=== PATIENT | female | born 1980 | race Caucasian/White ===

== ENCOUNTER → 2016-09-05 | Outpatient (CLI) | payer OTHER ==
[~2016-09-05] MED LIST: METH500T PO; OXYC1TAB63 PO
== END ==
LOC: HPND 07:59
PROVIDERS: ATTEND Obstetrics & Gynecology
DX: O09.522 Supervision of elderly multigravida, second trimester (principal); O09.812 Supervision of pregnancy resulting from assisted reproductive technology, second trimester; O44.02 Complete placenta previa NOS or without hemorrhage, second trimester
CPT/HCPCS: 76816; 76817; 76825; 76827; 93325

== ENCOUNTER → 2016-10-04 | Outpatient (CLI) | payer OTHER | LOC: HPND 08:08 | PROVIDERS: ATTEND Obstetrics & Gynecology | DX: O44.03 Complete placenta previa NOS or without hemorrhage, third trimester (principal); O09.523 Supervision of elderly multigravida, third trimester; O04.8 (Induced) termination of pregnancy with other and unspecified complications; Z3A.28 28 weeks gestation of pregnancy | CPT/HCPCS: 76816; 76817 ==

== ENCOUNTER → 2016-10-30 | Outpatient (CLI) | payer OTHER | LOC: HPND 09:53 | PROVIDERS: ATTEND Obstetrics & Gynecology | DX: O09.522 Supervision of elderly multigravida, second trimester (principal); O44.40 Low lying placenta NOS or without hemorrhage, unspecified trimester; O09.812 Supervision of pregnancy resulting from assisted reproductive technology, second trimester | CPT/HCPCS: 76816; 76817 ==

== ENCOUNTER 2016-11-20 21:07 | Inpatient (IN) | payer OTHER ==
[~2016-11-20] VITALS: Ht 175.3 cm; Wt 113.4 kg
--- NOTE | 2016-11-20 22:07 | PD ---
HPI Chief Complaint LOF Date Seen: Nov 20, 2016 Travel History International Travel<30 Days: No Contact w/Intl Traveler<30Days: No Known Affected Area: No History of Present Illness HPI at 35w 4d, SHAY 12-21-16, presents with c/o LOF. Reports clear fluid 1-2 hours prior to arrival. Denies contractions/VB. Reports good FM. Patient with history of HTN- currently taking Aldomet 500mg bid. Did not take pm dose. Denies SHEIKH/visual changes/RUQ pain. Para: 0 : 2 History Past Medical History Narrative Medical CHTN- currently taking Aldomet 500mg bid Medical History: Denies Significant Hx Obstetric History Obstetric History SAB, first trimester Past Surgical History Surgical History: No Previous Surgery Family History Family History: Negative Social History Alcohol Use: No Tobacco Use: No Substance Abuse: No Physical Exam AFVSS BP 148/88, 146/69 Narrative GENERAL: Well-nourished, well-developed patient. SKIN: Warm and dry. HEAD: Normocephalic and atraumatic. EYES: No scleral icterus. No injection or drainage. ENT: No nasal drainage noted. Mucous membranes pink. Airway patent. NECK: Supple, trachea midline. No JVD. CARDIOVASCULAR: Regular rate and rhythm without murmurs, gallops, or rubs. RESPIRATORY: Breath sounds equal bilaterally. No accessory muscle use. BREASTS: Bilateral exam showed no masses , no retractions, no nipple discharge. ABDOMEN/GI: Abdomen soft, non-tender, bowel sounds present, no rebound, no guarding Gravid to [-] weeks size Fundal Height: [-] GENITOURINARY: External Genitalia: intact and normal in appearance BUS glands: [-] Cervix: [-] Dilatation: [0] Effacement: [0] Station: [3] Presentation: [-] Membranes: [intact or ruptured] Uterine Contractions: [-] FHT's: Category: [1] Baseline: [130s] Reactive: [reactive] Variability: [moderate] Decels: [none] EXTREMITIES: No cyanosis or edema. BACK: Nontender without obvious deformity. No CVA tenderness. NEUROLOGICAL: Awake and alert. Motor and sensory grossly within normal limits. Five out of 5 muscle strength in all muscle groups. Normal speech. Data Data Labs AmniSure- negative AmniSure- positive Limited bedside US- JM 12cm, vertex. MDM Interpretation(s) at 35w 4d, CHTN, no leakage of fluid. Plan Will have patient take pm dose of Aldomet. Will monitor and recheck BP. Patient now with a negative and positive AmniSure. JM 12cm. Will admit for observation and have US done in the am. All questions answered. D/w Dr. Celestin. Diagnosis Diagnosis: Primary Impression: 35 weeks gestation of Additional Impressions: Hypertension affecting in third trimester Vaginal discharge during in third trimester Tiffanie Nguyen MD Nov 20, 2016 22:07
[2016-11-21] VITALS (85 sets, daily range): BP systolic 121–152; BP diastolic 60–88; PULSE 61–106; RESP 16–20; TEMP 97.8–98
[2016-11-21] MEDS ORDERED: METH500T PO (00:11)
--- NOTE | 2016-11-21 07:50 | HHI.HP ---
HPI Chief Complaint leaking fluid Date Seen: Nov 21, 2016 Time Seen: 07:45 Travel History International Travel<30 Days: No Contact w/Intl Traveler<30Days: No Known Affected Area: No History of Present Illness HPI Patient reports wet feeling all day at work. When she came home it was continuing she came for evaluation. Other diagnosis include low lying placenta and IVF, Hypertension on Methyldopa 500mg BID Para: 0 : 2 History Past Medical History Medical History: Denies Significant Hx Obstetric History Obstetric History one miscarriage Past Surgical History Narrative Surgical none Family History Family History: Negative Social History Alcohol Use: No Tobacco Use: No Substance Abuse: No Allergies-Medications (Allergen,Severity, Reaction): Coded Allergies: No Known Allergies (Unverified , 11/21/16) Home Meds Reported Medications Methyldopa 500 Mg [id number] Mg PO BID Ref 0 11/21/16 Review of Systems Except as stated in HPI: all other systems reviewed are Neg Physical Exam Vital Signs Date Time Temp Pulse Resp B/P Pulse Ox O2 Delivery O2 Flow Rate FiO2 11/21/16 07:12 71 121/67 11/21/16 07:10 74 11/21/16 07:00 17 11/21/16 07:00 89 11/21/16 02:28 97.9 18 11/21/16 02:27 74 128/77 11/21/16 00:27 98.0 18 11/21/16 00:17 83 144/84 Narrative GENERAL: Well-nourished, well-developed patient. SKIN: Warm and dry. HEAD: Normocephalic and atraumatic. EYES: No scleral icterus. No injection or drainage. ENT: No nasal drainage noted. Mucous membranes pink. Airway patent. NECK: Supple, trachea midline. No JVD. CARDIOVASCULAR: Regular rate and rhythm without murmurs, gallops, or rubs. RESPIRATORY: Breath sounds equal bilaterally. No accessory muscle use. BREASTS: Bilateral exam showed no masses , no retractions, no nipple discharge. ABDOMEN/GI: Abdomen soft, non-tender, bowel sounds present, no rebound, no guarding Gravid to 35 weeks size Fundal Height: [-] GENITOURINARY: External Genitalia: intact and normal in appearance BUS glands: [-] Cervix: closed Effacement: [-] Station: [-] Presentation: [-] Membranes:? Uterine Contractions: [-] FHT's: Category:1 Baseline: [-] Reactive: [-] Variability: [-] Decels: [-] EXTREMITIES: No cyanosis or edema. BACK: Nontender without obvious deformity. No CVA tenderness. NEUROLOGICAL: Awake and alert. Motor and sensory grossly within normal limits. Five out of 5 muscle strength in all muscle groups. Normal speech. Data Data Vital Signs Reviewed: Yes Orders Ob (2e) Additional Admit Info (11/20/16 23:57) Place In Observation (11/20/16 ) Vital Signs (Adult) BEAR.U0Y-JOKDS AWAKE (11/20/16 23:59) Heart BEAR.QSHIFT (11/20/16 23:59) Activity Bed Rest With Brp (11/20/16 23:59) Complete Blood Count With Diff (11/20/16 23:59) Sodium Chloride 0.9% Flush (Ns Flush) (11/21/16 00:00) Diet Regular Basic (11/21/16 Breakfast) Type And Screen (11/20/16 23:59) Assessment/Plan Problem List: (1) Hypertension affecting in third trimester (2) Vaginal discharge during in third trimester (3) 35 weeks gestation of Assessment and Plan Have us today check fluid Aki Celestin MD Nov 21, 2016 07:50
[2016-11-21 07:51] LABS: BASOPHIL % 0.3 % (0.0-2.0); EOSINOPHIL # 0.1 TH/MM3 (0-0.4); EOSINOPHIL % 0.7 % (0.0-4.0); HEMATOCRIT 33.7 % (35.0-46.0); HEMO FLAGS DIFF FINAL; LYMPHOCYTE # 3.4 TH/MM3 (1.0-4.8); MEAN CELL VOLUME 89.7 FL (80.0-100.0); MEAN CORPUSCULAR HEMOGLOBIN 31.8 PG (27.0-34.0); MEAN CORPUSCULAR HGB CONC 35.4 % (32.0-36.0); MONO % 6.6 % (0.0-8.0); NEUT % 70.4 % (16.0-70.0); PLATELET COUNT 220 TH/MM3 (150-450); RED BLOOD COUNT 3.76 MIL/MM3 (4.00-5.30); RED CELL DISTRIBUTION WIDTH 12.7 % (11.6-17.2); WHITE BLOOD COUNT 15.6 TH/MM3 (4.0-11.0)
[2016-11-21] MEDS ORDERED: MISOPROSTOL 25 MCG SUPP VAGINAL ONE (13:15)
[2016-11-21] MEDS ORDERED: PENICILLIN G POT 5,000,000 UNITS/NS 100 ML(Mini-Bag Plus) IV ONE ×2 (13:15)
[2016-11-21] MEDS ORDERED: OXYTOCIN 30 UNITS 500ML PREMIX IV ONE (13:30)
[2016-11-21] MEDS ORDERED: MINERAL OIL 10 ML VIAL TOPICAL PRN (13:30)
[2016-11-21] MEDS ORDERED: LIDOCAINE HCL 1% 50 ML VIAL INFIL PRN (13:30)
[2016-11-21] MEDS ORDERED: LACTATED RINGER'S 1000 ML BOLUS IV PRN (13:45)
[2016-11-21] MEDS ORDERED: NS 1000 ML IV PRN (13:45)
[2016-11-21] MEDS ORDERED: NS 500 ML BOLUS IV PRN (13:45)
[2016-11-21] MEDS ORDERED: LIDOCAINE HCL 1% 50 ML VIAL I-DERMAL PRN (13:45)
[2016-11-21] MEDS ORDERED: CITRIC ACID-SODIUM CITRATE LIQ 30 ML UDC PO SCH (13:45)
[2016-11-21 13:53] LABS: AUTOMATED NEUTROPHIL # 9.9 TH/MM3 (1.8-7.7); BASOPHIL % 0.3 % (0.0-2.0); EOSINOPHIL % 0.2 % (0.0-4.0); HEMATOCRIT 31.8 % (35.0-46.0); HEMO FLAGS DIFF FINAL; LYMPH % 18.1 % (9.0-44.0); LYMPHOCYTE # 2.4 TH/MM3 (1.0-4.8); MEAN CELL VOLUME 89.5 FL (80.0-100.0); MEAN CORPUSCULAR HEMOGLOBIN 31.5 PG (27.0-34.0); MEAN CORPUSCULAR HGB CONC 35.2 % (32.0-36.0); MONO % 5.4 % (0.0-8.0); PLATELET COUNT 196 TH/MM3 (150-450); RED BLOOD COUNT 3.55 MIL/MM3 (4.00-5.30); RED CELL DISTRIBUTION WIDTH 12.5 % (11.6-17.2)
[2016-11-21] MEDS: BETAMETHASONE SOD PHOS/ACETATE SUSP 30 MG/5 ML VIAL IM SCH (14:52)
[2016-11-21] MEDS: LACTATED RINGER'S 1000 ML IV SCH ×2 (14:53→22:29)
[2016-11-21 14:54] LABS: BACTERIA, URINE RARE /hpf; BLOOD, URINE NEG (NEG); COMMENT (UR) CULT NOT INDICATED; CULTURE IF INDICATED CULT NOT INDICATED; GLUCOSE,URINE NEG (NEG); KETONE, URINE NEG (NEG); NITRITE,URINE NEG (NEG); PH, URINE 6.5 (5.0-8.5); SQUAMOUS EPITHELIAL CELL URINE 4 /hpf (0-5); URINE COLOR YELLOW (YELLW/STRAW)
[2016-11-21] MEDS ORDERED: PENICILLIN G POT 2,500,000 UNITS/NS 100 ML IV SCH ×2 (17:00)
--- NOTE | 2016-11-21 17:37 | PD.LABORPN ---
Subjective Subjective doing well, PPROM on cytotec and steroids and GBS prophylaxis Objective Vital Signs Vital Signs Date Time Temp Pulse Resp B/P Pulse Ox O2 Delivery O2 Flow Rate FiO2 11/21/16 15:15 18 11/21/16 15:15 98.0 141/76 11/21/16 11:15 97.8 76 17 11/21/16 11:14 75 127/77 11/21/16 11:10 77 11/21/16 11:05 70 11/21/16 11:00 75 Objective Pelvic Exam: Cervix: [-] Dilatation: closed Effacement: 20 Station: [-] Presentation: [-] Membranes: ruptured Uterine Contractions: [-] FHT's: Category: 1 Baseline: [-] Reactive: [-] Variability: [-] Decels: [-] Assessment/Plan Problem List: (1) Hypertension affecting in third trimester (2) Vaginal discharge during in third trimester (3) 35 weeks gestation of (4) premature rupture of membranes (PPROM) with onset of labor after 24 hours of rupture in third trimester, antepartum Aki Celestin MD Nov 21, 2016 17:37
[2016-11-21] MEDS ORDERED: SODIUM CHLORIDE 0.9% FLUSH 10 ML FLUSH IV FLUSH PRN ×2 (17:45)
[2016-11-21] MEDS: PENICILLIN G POT 2,500,000 UNITS/NS 100 ML IV SCH ×4 (19:41→23:38)
[2016-11-21] MEDS: MISOPROSTOL 25 MCG SUPP VAGINAL PRN ×2 (19:45→23:38)
[2016-11-21] MEDS: SODIUM CHLORIDE 0.9% FLUSH 10 ML FLUSH IV FLUSH SCH (19:46)
[2016-11-21] MEDS: METHYLDOPA 500 MG TAB PO SCH (20:59)
[2016-11-22] VITALS (265 sets, daily range): BP systolic 120–156; BP diastolic 59–94; PULSE 43–117; RESP 16–18; TEMP 97.5–98.4
[2016-11-22 00:09] LABS: BARBITURATES, URINE NEG (NEG); COCAINE, URINE NEG (NEG)
[2016-11-22 00:29] LABS: AMPHETAMINE, URINE POS (NEG)
[2016-11-22] MEDS: PENICILLIN G POT 2,500,000 UNITS/NS 100 ML IV SCH ×10 (03:16→18:53)
[2016-11-22] MEDS: MISOPROSTOL 25 MCG SUPP VAGINAL PRN (03:24)
[2016-11-22] MEDS: LACTATED RINGER'S 1000 ML IV SCH ×3 (05:45→21:45)
[2016-11-22] MEDS ORDERED: MISOPROSTOL 100 MCG TAB ONE (07:47)
[2016-11-22] MEDS ORDERED: MISOPROSTOL 100 MCG TAB VAGINAL ONE ×2 (08:00→14:15)
--- NOTE | 2016-11-22 08:04 | PD.LABORPN ---
Subjective Subjective SROM Objective Vital Signs Vital Signs Date Time Temp Pulse Resp B/P Pulse Ox O2 Delivery O2 Flow Rate FiO2 11/22/16 07:21 97.5 16 11/22/16 07:20 87 11/22/16 07:15 78 11/22/16 07:10 76 11/22/16 07:05 80 11/22/16 07:00 88 134/74 11/22/16 07:00 71 11/22/16 06:55 83 11/22/16 06:50 76 11/22/16 06:40 73 11/22/16 06:35 89 11/22/16 06:30 73 11/22/16 06:25 74 11/22/16 06:20 73 11/22/16 06:15 73 11/22/16 06:10 73 11/22/16 06:05 73 11/22/16 06:00 79 11/22/16 06:00 86 130/79 11/22/16 05:55 97 11/22/16 05:50 84 11/22/16 05:45 87 11/22/16 05:40 85 11/22/16 05:35 91 11/22/16 05:30 97.7 11/22/16 05:30 93 11/22/16 05:30 18 11/22/16 05:25 79 11/22/16 05:20 75 11/22/16 05:15 76 11/22/16 05:10 89 11/22/16 05:00 78 128/87 11/22/16 05:00 89 11/22/16 04:55 75 11/22/16 04:50 73 11/22/16 04:45 75 11/22/16 04:40 78 11/22/16 04:35 73 11/22/16 04:30 74 11/22/16 04:25 75 11/22/16 04:20 72 11/22/16 04:15 70 11/22/16 04:10 71 11/22/16 04:05 87 11/22/16 04:00 75 11/22/16 04:00 87 120/94 11/22/16 03:55 73 11/22/16 03:50 72 11/22/16 03:45 75 11/22/16 03:40 83 11/22/16 03:35 74 11/22/16 03:30 76 11/22/16 03:25 76 11/22/16 03:20 78 11/22/16 03:18 97.8 16 11/22/16 03:15 81 11/22/16 03:10 88 11/22/16 03:00 77 11/22/16 03:00 78 126/80 11/22/16 02:55 86 11/22/16 02:50 76 11/22/16 02:45 72 11/22/16 02:40 73 11/22/16 02:35 74 11/22/16 02:30 78 11/22/16 02:25 75 11/22/16 02:20 71 11/22/16 02:15 92 11/22/16 02:10 77 16 11/22/16 02:05 74 11/22/16 02:00 68 11/22/16 02:00 72 125/77 11/22/16 01:55 74 11/22/16 01:50 81 11/22/16 01:40 83 11/22/16 01:35 82 11/22/16 01:30 88 11/22/16 01:25 87 11/22/16 01:20 87 11/22/16 01:15 89 11/22/16 01:10 82 11/22/16 01:05 81 11/22/16 01:04 97.9 18 11/22/16 01:00 76 120/70 11/22/16 01:00 85 11/22/16 00:55 76 11/22/16 00:50 74 11/22/16 00:45 75 11/22/16 00:40 75 11/22/16 00:35 74 11/22/16 00:30 76 11/22/16 00:25 77 11/22/16 00:20 86 11/22/16 00:15 78 11/22/16 00:10 75 11/22/16 00:05 80 Objective Pelvic Exam: Cervix: [-] Dilatation: closed Effacement: 50 Station: [-] Presentation: [-] Membranes: ruptured] Uterine Contractions: infrequent FHT's: Category: 1 Baseline: [-] Reactive: [-] Variability: [-] Decels: [-] Assessment/Plan Problem List: (1) Hypertension affecting in third trimester (2) Vaginal discharge during in third trimester (3) 35 weeks gestation of (4) premature rupture of membranes (PPROM) with onset of labor after 24 hours of rupture in third trimester, antepartum Assessment and Plan 4 doses cytotec supp 25 mcg now increase to 50 mcg tablet Aki Celestin MD Nov 22, 2016 08:04
[2016-11-22] MEDS ORDERED: PILL SPLITTER OTHER PRN (08:15)
[2016-11-22] MEDS: METHYLDOPA 500 MG TAB PO SCH ×2 (08:49→21:05)
[2016-11-22] MEDS: SODIUM CHLORIDE 0.9% FLUSH 10 ML FLUSH IV FLUSH SCH ×2 (09:00→21:00)
[2016-11-22] MEDS: BETAMETHASONE SOD PHOS/ACETATE SUSP 30 MG/5 ML VIAL IM SCH (14:31)
[2016-11-22] MEDS ORDERED: OXYTOCIN 30 UNITS-500ML PREMIX 500 ML ONE (18:03)
[2016-11-22] MEDS ORDERED: OXYTOCIN 30 UNITS/NS 500ML PREMIX IV SCH (18:30)
[2016-11-23] VITALS (41 sets, daily range): BP systolic 101–149; BP diastolic 61–83; PULSE 67–106; RESP 16–18; TEMP 97.1–98.4; O2SAT 96–97
--- NOTE | 2016-11-23 00:04 | PD.LABORPN ---
Subjective Subjective doing well Objective Vital Signs Vital Signs Date Time Temp Pulse Resp B/P Pulse Ox O2 Delivery O2 Flow Rate FiO2 11/22/16 23:30 69 11/22/16 23:25 73 11/22/16 23:15 94 11/22/16 23:10 96 11/22/16 23:05 101 11/22/16 23:00 98 156/84 11/22/16 23:00 93 11/22/16 22:55 97 11/22/16 22:50 94 11/22/16 22:45 96 11/22/16 22:40 117 11/22/16 22:35 95 11/22/16 22:30 94 11/22/16 22:20 84 11/22/16 22:15 81 11/22/16 22:10 87 11/22/16 22:05 77 11/22/16 22:01 88 129/59 11/22/16 22:00 77 11/22/16 21:55 82 11/22/16 21:50 89 11/22/16 21:45 99 11/22/16 21:40 91 11/22/16 21:35 98.0 11/22/16 21:30 81 11/22/16 21:25 83 11/22/16 21:20 82 11/22/16 21:15 81 11/22/16 21:10 76 11/22/16 21:05 79 11/22/16 21:00 86 11/22/16 20:55 74 11/22/16 20:52 81 150/92 11/22/16 20:50 85 11/22/16 20:45 88 11/22/16 20:40 69 11/22/16 20:35 76 11/22/16 20:30 75 11/22/16 20:25 73 11/22/16 20:20 92 11/22/16 20:10 91 11/22/16 20:05 93 11/22/16 20:00 94 11/22/16 19:50 89 11/22/16 19:45 90 11/22/16 19:40 85 11/22/16 19:35 93 11/22/16 19:30 95 11/22/16 19:25 89 11/22/16 19:20 78 11/22/16 19:15 78 11/22/16 19:10 82 11/22/16 19:05 91 11/22/16 19:00 83 11/22/16 18:58 88 16 143/93 11/22/16 18:55 50 11/22/16 18:50 43 11/22/16 18:45 49 11/22/16 18:40 83 11/22/16 18:30 83 11/22/16 17:53 97.7 137/83 11/22/16 17:52 16 11/22/16 17:50 74 11/22/16 17:00 18 140/81 11/22/16 16:55 83 11/22/16 16:50 74 11/22/16 16:45 79 11/22/16 16:40 85 11/22/16 16:35 77 11/22/16 16:30 18 11/22/16 16:30 85 11/22/16 16:25 77 11/22/16 16:20 81 11/22/16 16:15 78 11/22/16 16:10 83 11/22/16 16:05 87 11/22/16 16:00 81 11/22/16 15:59 16 11/22/16 15:59 98.4 11/22/16 15:59 75 128/66 11/22/16 15:55 85 Objective Pelvic Exam: Cervix: [-] Dilatation: closed Effacement: 50 Station: [-] Presentation: v Membranes: [intact Uterine Contractions: [-] FHT's: Category: 1 Baseline: [-] Reactive: [-] Variability: [-] Decels: [-] Assessment/Plan Problem List: (1) Hypertension affecting in third trimester (2) Vaginal discharge during in third trimester (3) 35 weeks gestation of (4) premature rupture of membranes (PPROM) with onset of labor after 24 hours of rupture in third trimester, antepartum Assessment and Plan pitocin if no contractions will perform CS after 48 hours of srom Aki Celestin MD Nov 23, 2016 00:04
[2016-11-23] MEDS: PENICILLIN G POT 2,500,000 UNITS/NS 100 ML IV SCH ×2 (00:19)
[2016-11-23] MEDS ORDERED: OXYTOCIN 10 UNIT/ML AMP ONE (03:01)
[2016-11-23] MEDS ORDERED: CITRIC ACID-SODIUM CITRATE LIQ 30 ML UDC PO SCH (03:15)
[2016-11-23] MEDS ORDERED: ceFAZolin 2 GM PREMIX 50 ML IV SCH (03:15)
[2016-11-23] MEDS ORDERED: LACTATED RINGER'S 1000 ML IV SCH (03:15)
[2016-11-23] MEDS ORDERED: LACTATED RINGER'S 1000 ML IV ONE (03:15)
[2016-11-23] MEDS ORDERED: EPIDURAL-DIPHENHYDRAMINE HCL 50 MG/ML VIAL IV PUSH PRN (03:30)
[2016-11-23] MEDS ORDERED: EPIDURAL-NALOXONE HCL 0.4 MG/ML AMP IV PRN (03:30)
[2016-11-23] MEDS ORDERED: EPIDURAL-NO SYSTEMIC NARCOTICS PRN (03:30)
[2016-11-23] MEDS ORDERED: EPIDURAL-DIPHENHYDRAMINE HCL 50 MG CAP PO PRN (03:30)
[2016-11-23] MEDS ORDERED: EPIDURAL-DO NOT ADMINISTER ANTICOAGULANTS PRN (03:30)
[2016-11-23] MEDS ORDERED: ONDANSETRON HCL 4 MG/2 ML VIAL ONE (04:11)
[2016-11-23] MEDS ORDERED: MORPHINE SULFATE PF 5 MG/10 ML VIAL ONE (04:11)
[2016-11-23] MEDS ORDERED: OXYTOCIN 30 UNITS-500ML PREMIX 500 ML IV ONE (04:15)
[2016-11-23] MEDS ORDERED: oxyCODONE/ACETAMINOPHEN 5 MG/325 MG TAB PO PRN ×2 (04:15)
[2016-11-23] MEDS ORDERED: KETOROLAC TROMETHAMINE 60 MG/2 ML (IM) VIAL IM PRN (04:15)
[2016-11-23] MEDS ORDERED: SODIUM CHLORIDE 0.9% FLUSH 10 ML FLUSH IV FLUSH PRN (04:15)
[2016-11-23] MEDS ORDERED: SIMETHICONE 80 MG CHEWABLE TAB PO PRN (04:15)
--- NOTE | 2016-11-23 04:16 | PD.OB.DELI ---
Procedure Note Section Procedure Pre Op Diagnosis: (1) 35 weeks gestation of (2) premature rupture of membranes (PPROM) with onset of labor after 24 hours of rupture in third trimester, antepartum Post Op Diagnosis: (1) 35 weeks gestation of (2) premature rupture of membranes (PPROM) with onset of labor after 24 hours of rupture in third trimester, antepartum (3) Arrest of dilation, delivered, current hospitalization Performed by Aki Celestin Procedure: Primary Low Transverse Sec Indication for delivery: Other (arrest of dilatation) Informed consent obtained: For anesthesia, For procedure Confirmed correct: Patient, Procedure, Time-out taken Anesthesia: Spinal Medication prior to procedure: Antibiotics, IV Monitoring during procedure: Blood pressure monitoring Urinary catheter: Inserted using sterile technique, To dependent drainage Sterile preparation: Duraprep Position: Supine with wedge to left side Operative Features Skin Incision: Pfannenstiel Uterine Incision: Low transverse w/knife / blunt ext Membranes Ruptured: Previously Presentation: Occiput anterior Delivery of : Assisted (vacuum to elevate) : Male, Single One Minute : 7 Five Minute : 8 Weight: 6# 2 oz Status of : Viable Placenta delivered: Intact Medications: Antibiotics Estimated blood loss: 400 Procedure tolerated: Well Maternal Condition: Stable Condition: Stable Aki Celestin MD Nov 23, 2016 04:16
[2016-11-23] MEDS ORDERED: SODIUM CHLORIDE 0.9% FLUSH 5 ML FLUSH ONE (04:24)
[2016-11-23] MEDS ORDERED: LACTATED RINGER'S 1,000 ML BAG IV ONE (04:31)
--- NOTE | 2016-11-23 07:33 | HHI.OB ---
Subjective Post Day: 1 Remarks had CS this AM doing well Objective Vitals/I&O Vital Signs Date Time Temp Pulse Resp B/P Pulse Ox O2 Delivery O2 Flow Rate FiO2 11/23/16 05:15 79 18 123/69 96 11/23/16 05:00 81 18 96 11/23/16 04:50 116/62 11/23/16 04:44 79 18 124/64 96 11/23/16 04:15 97.8 100 18 101/66 97 11/23/16 03:10 106 11/23/16 03:05 90 11/23/16 03:00 87 125/71 11/23/16 03:00 84 11/23/16 02:48 98.0 11/23/16 02:45 90 11/23/16 02:35 96 11/23/16 02:30 83 11/23/16 02:25 92 11/23/16 02:20 92 11/23/16 02:15 85 11/23/16 02:10 93 11/23/16 02:05 94 11/23/16 02:00 80 143/83 11/23/16 02:00 78 11/23/16 01:55 88 11/23/16 01:50 74 11/23/16 01:45 86 11/23/16 01:40 87 11/23/16 01:35 89 11/23/16 01:10 84 11/23/16 01:00 81 127/65 11/23/16 00:50 88 11/23/16 00:45 86 11/23/16 00:40 85 11/23/16 00:35 75 11/23/16 00:30 75 11/23/16 00:25 74 11/23/16 00:21 97.9 11/23/16 00:20 84 11/23/16 00:15 85 11/23/16 00:10 82 11/23/16 00:05 95 11/23/16 00:00 87 149/81 11/23/16 00:00 93 11/22/16 23:55 93 11/22/16 23:50 84 11/22/16 23:45 78 11/22/16 23:40 78 11/22/16 23:35 82 11/22/16 23:30 69 11/22/16 23:25 73 11/22/16 23:15 94 11/22/16 23:10 96 11/22/16 23:05 101 11/22/16 23:00 98 156/84 11/22/16 23:00 93 11/22/16 22:55 97 11/22/16 22:50 94 11/22/16 22:45 96 11/22/16 22:40 117 11/22/16 22:35 95 11/22/16 22:30 94 11/22/16 22:20 84 11/22/16 22:15 81 11/22/16 22:10 87 11/22/16 22:05 77 11/22/16 22:01 88 129/59 11/22/16 22:00 77 11/22/16 21:55 82 11/22/16 21:50 89 11/22/16 21:45 99 11/22/16 21:40 91 11/22/16 21:35 98.0 11/22/16 21:30 81 11/22/16 21:25 83 11/22/16 21:20 82 11/22/16 21:15 81 11/22/16 21:10 76 11/22/16 21:05 79 11/22/16 21:00 86 11/22/16 20:55 74 11/22/16 20:52 81 150/92 11/22/16 20:50 85 11/22/16 20:45 88 11/22/16 20:40 69 11/22/16 20:35 76 11/22/16 20:30 75 11/22/16 20:25 73 11/22/16 20:20 92 11/22/16 20:10 91 11/22/16 20:05 93 11/22/16 20:00 94 11/22/16 19:50 89 11/22/16 19:45 90 11/22/16 19:40 85 11/22/16 19:35 93 11/22/16 19:30 95 11/22/16 19:25 89 11/22/16 19:20 78 11/22/16 19:15 78 11/22/16 19:10 82 11/22/16 19:05 91 11/22/16 19:00 83 11/22/16 18:58 88 16 143/93 11/22/16 18:55 50 11/22/16 18:50 43 11/22/16 18:45 49 11/22/16 18:40 83 11/22/16 18:30 83 11/22/16 17:53 97.7 137/83 11/22/16 17:52 16 11/22/16 17:50 74 11/22/16 17:00 18 140/81 11/22/16 16:55 83 11/22/16 16:50 74 11/22/16 16:45 79 11/22/16 16:40 85 11/22/16 16:35 77 11/22/16 16:30 18 11/22/16 16:30 85 11/22/16 16:25 77 11/22/16 16:20 81 11/22/16 16:15 78 11/22/16 16:10 83 11/22/16 16:05 87 11/22/16 16:00 81 11/22/16 15:59 16 11/22/16 15:59 98.4 11/22/16 15:59 75 128/66 11/22/16 15:55 85 11/22/16 15:50 83 11/22/16 15:45 79 11/22/16 15:40 77 11/22/16 15:35 74 11/22/16 15:30 16 11/22/16 15:30 76 11/22/16 15:20 83 11/22/16 15:15 87 11/22/16 15:10 82 11/22/16 15:05 80 11/22/16 15:00 88 11/22/16 15:00 128/62 11/22/16 15:00 16 11/22/16 15:00 85 11/22/16 14:55 88 11/22/16 14:50 93 11/22/16 14:45 87 11/22/16 14:40 83 11/22/16 14:35 82 11/22/16 14:30 16 11/22/16 14:30 77 11/22/16 14:25 86 11/22/16 14:20 87 11/22/16 14:15 76 11/22/16 14:10 82 11/22/16 14:07 85 142/81 11/22/16 14:05 81 11/22/16 14:00 98.2 85 18 11/22/16 13:55 80 11/22/16 13:50 80 11/22/16 13:45 86 11/22/16 13:40 99 11/22/16 13:35 86 11/22/16 13:30 81 11/22/16 13:25 85 11/22/16 13:20 76 11/22/16 13:10 82 11/22/16 13:05 86 11/22/16 13:01 82 11/22/16 13:00 16 141/66 11/22/16 13:00 82 11/22/16 12:55 83 11/22/16 12:50 92 11/22/16 12:45 83 11/22/16 12:40 89 11/22/16 12:35 90 11/22/16 12:30 16 11/22/16 12:30 85 11/22/16 12:25 83 11/22/16 12:20 89 11/22/16 12:15 94 11/22/16 12:10 94 11/22/16 12:10 86 132/74 11/22/16 12:05 83 11/22/16 12:00 16 11/22/16 12:00 88 11/22/16 11:55 83 11/22/16 11:50 90 11/22/16 11:45 90 11/22/16 11:40 90 11/22/16 11:35 85 11/22/16 11:30 98.1 11/22/16 11:30 78 11/22/16 11:25 86 11/22/16 11:20 80 11/22/16 11:15 82 11/22/16 11:10 88 11/22/16 11:05 76 11/22/16 11:00 86 11/22/16 11:00 18 11/22/16 10:58 79 135/78 11/22/16 10:55 87 11/22/16 10:45 82 11/22/16 10:40 83 11/22/16 10:35 81 11/22/16 10:30 16 11/22/16 10:30 87 11/22/16 10:25 87 11/22/16 10:20 88 11/22/16 10:15 88 11/22/16 10:10 92 11/22/16 10:05 90 11/22/16 10:00 92 11/22/16 09:58 82 135/83 11/22/16 09:58 16 11/22/16 09:55 79 11/22/16 09:45 84 11/22/16 09:40 94 11/22/16 09:35 88 11/22/16 09:30 91 11/22/16 09:30 97.8 11/22/16 09:30 18 11/22/16 09:25 92 11/22/16 09:20 85 11/22/16 09:15 85 135/78 11/22/16 09:15 87 11/22/16 09:10 87 11/22/16 09:05 86 11/22/16 09:00 91 11/22/16 09:00 16 11/22/16 08:55 88 11/22/16 08:50 87 11/22/16 08:10 85 11/22/16 08:05 92 11/22/16 08:00 92 11/22/16 08:00 133/83 11/22/16 08:00 16 11/22/16 08:00 79 11/22/16 07:55 89 11/22/16 07:50 87 11/22/16 07:45 83 11/22/16 07:40 82 11/22/16 07:35 83 Objective Remarks GENERAL: Well-nourished, well-developed patient. ABDOMEN/GI: Abdomen soft, non-tender. Fundus: Firm, non-tender at umbilicus. GENITOURINARY: Light to moderate bleeding. EXTREMITIES: No cyanosis or edema, non-tender, without signs of DVT. Medications and IVs Current Medications Medications (Trade) Dose Ordered Sig/Emily Route Start Time Stop Time Status Last Admin (NS Flush) 2 ml BID IV FLUSH 11/21/16 21:00 Sodium Chloride 2 ml 2 ml UNSCH PRN IV FLUSH 11/21/16 17:45 Lactated Ringer's 1,000 ml @ 100 mls/hr Q10H IV 11/23/16 09:10 11/24/16 05:09 (Pitocin 30 Units-NS 500 ml Premix) 500 ml @ 100 mls/hr ONCE ONCE IV 11/23/16 04:15 11/23/16 09:14 (NS Flush) 2 ml BID IV FLUSH 11/23/16 09:00 (NS Flush) 2 ml UNSCH PRN IV FLUSH 11/23/16 04:15 (Mylicon Chew) 80 mg QID PRN PO 11/23/16 04:15 (Motrin) 600 mg Q6H PRN PO 11/23/16 04:15 (Toradol Inj) 30 mg Q6H PRN IM 11/23/16 04:15 11/24/16 04:14 (Percocet 5-325 Mg) 1 tab Q4H PRN PO 11/23/16 04:15 (Percocet 5-325 Mg) 2 tab Q4H PRN PO 11/23/16 04:15 (M-M-R Ii Inj) 0.5 ml ONCE ONCE SQ 11/24/16 16:00 11/24/16 16:01 (Boostrix Inj) 0.5 ml ONCE ONCE IM 11/24/16 16:00 11/24/16 16:01 Miscellaneous Information NO SYSTEMIC NARCOTICS TO BE GIVEN FO... UNSCH PRN .XX 11/23/16 03:30 11/24/16 03:29 (Narcan Inj) 0.4 mg UNSCH PRN IV 11/23/16 03:30 11/24/16 03:29 (Benadryl Inj) 25 mg Q6H PRN IV PUSH 11/23/16 03:30 11/24/16 03:29 (Benadryl) 50 mg Q6H PRN PO 11/23/16 03:30 11/24/16 03:29 Miscellaneous Information ALL NURSING DEPARTMENTS UNSCH PRN .XX 11/23/16 03:30 11/24/16 03:29 Assessment/Plan Problem List: (1) premature rupture of membranes (PPROM) with onset of labor after 24 hours of rupture in third trimester, antepartum (2) 35 weeks gestation of (3) delivery delivered Assessment and Plan doing well post CS Aki Celestin MD Nov 23, 2016 07:33
[2016-11-23] MEDS ORDERED: OXYC1TAB63 PO (07:34)
--- NOTE | 2016-11-23 07:35 | HHI.DCPOC ---
Discharge Care Plan Diagnosis: (1) delivery delivered Report Symptoms to Your Doctor -Temperate above 100.5 degrees -Redness, of incision or excessive or foul smelling drainage -Unusual pain or calf pain -Increased vaginal bleeding -Painful or difficulty urinating -Feelings of extreme sadness or anxiety after 2 weeks Goals to Promote Your Health * To prevent worsening of your condition and complications * To maintain your health at the optimal level Directions to Meet Your Goals Take your medications as prescribed Follow your dietary instruction Follow activity as directed Ensure plenty of rest for recovery Drink fluids for hydration Keep your appointments as scheduled Take your immunizations and boosters as scheduled If your symptoms worsen call your PCP, if no PCP go to Urgent Care Center or Emergency Room Smoking is Dangerous to Your Health. Avoid second hand smoke Call the 24-hour crisis hotline for domestic abuse at Aki Celestin MD Nov 23, 2016 07:35
[2016-11-23] MEDS ORDERED: LACTATED RINGER'S 1000 ML INJ 1,000 ML IV SCH (09:10)
[2016-11-23 09:46] LABS: BARBITURATES, URINE NEG (NEG); COCAINE, URINE NEG (NEG)
[2016-11-23 09:50] LABS: AMPHETAMINE, URINE POS (NEG)
[2016-11-23] MEDS ORDERED: OXYTOCIN 30 UNITS-500ML PREMIX 500 ML IV PRN (14:15)
[2016-11-23] MEDS: IBUPROFEN 600 MG TAB PO PRN (19:43)
[2016-11-23] MEDS: SODIUM CHLORIDE 0.9% FLUSH 10 ML FLUSH IV FLUSH SCH ×2 (21:00)
[2016-11-24] VITALS: BP 119/77; PULSE 80; RESP 18; TEMP 98.2
[2016-11-24 04:39] LABS: BASOPHIL % 0.2 % (0.0-2.0); EOSINOPHIL # 0.1 TH/MM3 (0-0.4); EOSINOPHIL % 0.4 % (0.0-4.0); HEMATOCRIT 28.3 % (35.0-46.0); HEMO FLAGS DIFF FINAL; LYMPH % 20.1 % (9.0-44.0); LYMPHOCYTE # 2.9 TH/MM3 (1.0-4.8); MEAN CELL VOLUME 89.9 FL (80.0-100.0); MEAN CORPUSCULAR HGB CONC 35.5 % (32.0-36.0); MONO % 9.4 % (0.0-8.0); NEUT % 69.9 % (16.0-70.0); PLATELET COUNT 196 TH/MM3 (150-450); RED BLOOD COUNT 3.15 MIL/MM3 (4.00-5.30); RED CELL DISTRIBUTION WIDTH 12.7 % (11.6-17.2); WHITE BLOOD COUNT 14.3 TH/MM3 (4.0-11.0)
[2016-11-24] MEDS: IBUPROFEN 600 MG TAB PO PRN ×3 (06:59→21:48)
[2016-11-24 08:20] VITALS: BP 134/87; PULSE 83; RESP 16; TEMP 97.7
--- NOTE | 2016-11-24 12:38 | HHI.OB ---
Subjective Post Operative Day: 1 Remarks Pt doing well, tolerating po, ambulating well, good pain control Objective Vitals/I&O Vital Signs Date Time Temp Pulse Resp B/P Pulse Ox O2 Delivery O2 Flow Rate FiO2 11/24/16 08:20 97.7 83 16 134/87 11/24/16 00:00 98.2 80 18 119/77 11/23/16 20:00 73 18 118/71 11/23/16 20:00 98.4 11/23/16 14:40 67 16 111/70 11/23/16 14:40 97.3 Result Diagram: 11/24/16 0431 Objective Remarks GENERAL: Well-nourished, well-developed patient. CARDIOVASCULAR: Regular rate and rhythm without murmurs, gallops, or rubs. RESPIRATORY: Breath sounds equal bilaterally. No accessory muscle use. ABDOMEN/GI: Abdomen soft, non-tender, bowel sounds present. Incision: Clean, dry and intact. Fundus: Firm, non-tender at umbilicus. GENITOURINARY: Light to moderate bleeding. EXTREMITIES: No cyanosis or edema, non-tender, without signs of DVT. Medications and IVs Current Medications Medications (Trade) Dose Ordered Sig/Emily Route Start Time Stop Time Status Last Admin (NS Flush) 2 ml BID IV FLUSH 11/21/16 21:00 (NS Flush) 2 ml UNSCH PRN IV FLUSH 11/21/16 17:45 (NS Flush) 2 ml BID IV FLUSH 11/23/16 09:00 (NS Flush) 2 ml UNSCH PRN IV FLUSH 11/23/16 04:15 (Mylicon Chew) 80 mg QID PRN PO 11/23/16 04:15 (Motrin) 600 mg Q6H PRN PO 11/23/16 04:15 11/24/16 06:59 (Percocet 5-325 Mg) 1 tab Q4H PRN PO 11/23/16 04:15 (Percocet 5-325 Mg) 2 tab Q4H PRN PO 11/23/16 04:15 (M-M-R Ii Inj) 0.5 ml ONCE ONCE SQ 11/24/16 16:00 11/24/16 16:01 (Boostrix Inj) 0.5 ml ONCE ONCE IM 11/24/16 16:00 11/24/16 16:01 11/24/16 10:04 Assessment/Plan Problem List: (1) premature rupture of membranes (PPROM) with onset of labor after 24 hours of rupture in third trimester, antepartum (2) 35 weeks gestation of (3) delivery delivered Assessment and Plan POD # 1 s/p c/s due to failed induction with SROM at 36 wks doing well 1. routine care Discharge Planning plan for discharge POD 2-3 Shruthi Anaya MD Nov 24, 2016 12:38
[2016-11-24] MEDS ORDERED: MEASLES, MUMPS, RUBELLA VACCINE 0.5 ML VIAL SQ ONE (16:00)
[2016-11-24] MEDS ORDERED: DIPHTH/TETANUS/ACEL PERTUSSIS (BOOSTER) 0.5 ML VIAL/PFS IM ONE (16:00)
--- NOTE | 2016-11-24 17:16 | MP ---
cc: THADDEUS CELESTIN DATE OF SURGERY 11/23/16 PROCEDURE Low transverse section. PREOPERATIVE DIAGNOSIS Arrest of dilatation with the cervix closed. The patient was 48 hours ruptured membranes with no progression of labor despite multiple medications. POSTOPERATIVE DIAGNOSIS Low transverse caesarean section. delivery of 36-week SURGEON Dr. Jadon Celestin ANESTHESIA Spinal COMPLICATIONS None FINDINGS Normal female pelvic anatomy with live male , Apgars 7 and 8. Six pounds 2 ounces. COMPLICATIONS None PROCEDURE IN DETAIL After informed consent, the patient was taken to the operating room where she was placed under spinal anesthesia placed in spine position left lateral tilt. Abdomen, perineum and vagina were prepped, draped normal sterile fashion. Toure catheter was placed to gravity. Time-out was taken. After adequate anesthesia was assured and all instruments were in place, a Pfannenstiel skin incision was carried sharply through the skin to the fascia. The fascia was nicked in the midline. Incision was extended laterally using Prabhakar scissors. The rectus muscles were dissected off the fascia with sharp and blunt dissection. Rectus muscle was in the midline. Peritoneum was entered bluntly with a finger. The incision was extended laterally using blunt traction. Bladder blade was placed in the abdomen, low-transverse uterine incision was then made, carried sharply in the uterine cavity. Clear fluid was noted. The incision was extended laterally using blunt traction. Hand was placed in the uterus. The infant's head was guided through the incision, but the head did not readily deliver. With multiple attempts of fundal pressure and elevating the head, we had to apply a vacuum to the occiput portion of the 's head to just gently elevate the head as we gave fundal pressure. The infant's head readily delivered. Nose and mouth suctioned well and the infant was delivered, the remaining portion, without difficulty. Cord was clamped and cut and was handed to pediatrics in attendance. Cord was clamped for 45 seconds secondary to lack of respiratory effort, baby had good tone. It was a male infant 6 pounds 2 ounces. At this point, cord blood was collected. Placenta was delivered manually. The uterus exteriorized, wiped free from all remaining products of conception. Uterine incision was closed with running locking stitch of chromic suture. Good hemostasis was achieved. The uterine incision was inspected, noted to be hemostatic, was placed back into the abdomen. Once again inspected and noted to be hemostatic. Peritoneum was closed with Vicryl suture. The fascia was closed with Vicryl suture and the skin was closed with subcuticular stitch. Each layer was noted to be hemostatic prior to closure. The patient tolerated the procedure well. She was taken to the recovery room in stable condition. MD NIRANJAN Zapata/ /4:20 AM /5:04 PM
[2016-11-24 20:00] VITALS: BP_SYST 138; BP_SYST 139; BP_DIAS 78; PULSE 88; RESP 19; TEMP 98.4
[2016-11-24 23:29] VITALS: BP 138/84; PULSE 81
[2016-11-25] MEDS: SODIUM CHLORIDE 0.9% FLUSH 10 ML FLUSH IV FLUSH SCH ×2 (04:55→04:56)
[2016-11-25] MEDS: IBUPROFEN 600 MG TAB PO PRN ×2 (05:46→11:40)
[2016-11-25 08:50] VITALS: BP 146/89; PULSE 75; RESP 20; TEMP 98.1
[2016-11-25 11:40] VITALS: RESP 18
[2016-11-25 15:40] VITALS: RESP 18
[2016-11-27 08:28] LABS: BATH SALTS (MDPV) UR NEG (NEG); ECSTASY (MDMA) UR NEG (NEG); HEROIN (6-ACETYLMORPHINE) UR NEG (NEG); K2 SPICE UR NEG (NEG); OBMETHADONE UR NEG (NEG); OXYCODONE (PERCODAN) NEG (NEG); PHENCYCLIDINE URINE NEG (NEG)
[2016-11-27 08:29] LABS: BATH SALTS (MDPV) UR NEG (NEG); ECSTASY (MDMA) UR NEG (NEG); GABAPENTIN UR NEG (NEG); HEROIN (6-ACETYLMORPHINE) UR NEG (NEG); HYDROMORPHONE U NEG (NEG); K2 SPICE UR NEG (NEG); OBMETHADONE UR NEG (NEG); OXYCODONE (PERCODAN) NEG (NEG); PHENCYCLIDINE URINE NEG (NEG)
== END 2016-11-25 17:13 | disposition home or self-care (01) | DRG 765 ==
LOC: HOBED 21:07 → H2EB 11-21 00:02 → OBSVTOIN 11-21 12:48 → H1EA 11-23 05:49
PROVIDERS: ADMIT Obstetrics & Gynecology; ATTEND Obstetrics & Gynecology
PROC: 10D00Z1 Extraction of Products of Conception, Low, Open Approach (ICD-10-PCS; principal; 2016-11-23)
DX: O42.113 Preterm premature rupture of membranes, onset of labor more than 24 hours following rupture, third trimester (principal); O60.14X0 Preterm labor third trimester with preterm delivery third trimester, not applicable or unspecified; O44.43 Low lying placenta NOS or without hemorrhage, third trimester; O13.4 Gestational [pregnancy-induced] hypertension without significant proteinuria, complicating childbirth; O62.0 Primary inadequate contractions; Z3A.36 36 weeks gestation of pregnancy; Z37.0 Single live birth
CPT/HCPCS: 59025; 76815; 76819; 76820; 80307; 80348; 81001; 84112; 85025; 86850; 86900; 86901; 90715; G0480; G0481; J0702; J2274; J2405; J2540; J2590; J7120